=== PATIENT | male | born 1950 | race Caucasian/White ===

== ENCOUNTER 2023-09-30 08:06 | Day surgery (SDC) | payer MEDICARE ==
[2023-09-27 11:05] VITALS: BMI 30.8
[2023-09-30] MEDS ORDERED: Ketorolac Tromethamine 30 MG (1 mL) VIAL ONE (08:43)
[2023-09-30] MEDS ORDERED: EPINEPHrine 1 MG/ML VIAL ONE (10:37)
[2023-09-30] MEDS ORDERED: Bupivacaine PF 0.5% 30 ML VIAL ONE (10:37)
[2023-09-30] MEDS ORDERED: Lidocaine 2% PF 5 ML VIAL ONE (10:37)
[2023-09-30] MEDS ORDERED: Midazolam HCl 2 mg/2 ml Vial ONE (10:44)
[2023-09-30] MEDS ORDERED: fentaNYL PF 100 MCG/2 ML SYRINGE ONE (10:44)
[2023-09-30] MEDS ORDERED: diphenhydrAMINE 50 MG/ML VIAL ONE (10:45)
[2023-09-30] MEDS ORDERED: Ondansetron PF 4 MG/2 ML Vial ONE (10:45)
[2023-09-30] MEDS ORDERED: PROPOFOL 20 ML ONE (10:46)
[2023-09-30] MEDS ORDERED: Sodium Chloride 0.9% 100 ML ONE (10:46)
[2023-09-30] MEDS ORDERED: CEFAZOLIN 2 GM VIAL ONE (10:46)
[2023-09-30] MEDS ORDERED: fentaNYL 50 mcg/mL 1 mL Vial ONE (11:00)
== END 2023-09-30 12:30 | disposition home or self-care (01) ==
LOC: SDC 08:06
PROVIDERS: ATTEND Specialist
PROC: 0JH60WZ Insertion of Totally Implantable Vascular Access Device into Chest Subcutaneous Tissue and Fascia, Open Approach (ICD-10-PCS; principal; 2023-09-30)
DX: C18.9 Malignant neoplasm of colon, unspecified (principal); Z90.49 Acquired absence of other specified parts of digestive tract
CPT/HCPCS: 36561; 71045; J0171; J3010; C1788; J0665; J1200; J1885; J2001; J2250; J2405; J2704; J3490

== ENCOUNTER 2023-10-27 16:14 | Outpatient (CLI) | payer MEDICARE | END 2023-10-27 16:15 | disposition home or self-care (01) | LOC: BICRAD 16:14 | PROVIDERS: ATTEND Internal Medicine | DX: C18.2 Malignant neoplasm of ascending colon (principal) | CPT/HCPCS: 74018 ==